=== PATIENT | male | born 1980 | race Caucasian/White ===

== ENCOUNTER 2017-06-21 15:25 | Emergency (ER) | payer OTHER ==
[2017-06-21] MEDS ORDERED: ACETAMINOPHEN TAB 500 MG TAB PO STA (16:02)
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
[2017-06-21] MEDS ORDERED: PROPARACAINE 0.5% OPHTH DROPS 15 ML BTL LEFT EYE STA (17:05)
[2017-06-21 17:35] VITALS: BP 128/84; PULSE 78; RESP 20; TEMP 98
== END 2017-06-21 17:35 | disposition home or self-care (01) ==
LOC: EC 15:25
DX: S02.80XA Fracture of other specified skull and facial bones, unspecified side, initial encounter for closed fracture (principal); S00.83XA Contusion of other part of head, initial encounter; F17.200 Nicotine dependence, unspecified, uncomplicated; Z88.5 Allergy status to narcotic agent; Y08.89XA Assault by other specified means, initial encounter
CPT/HCPCS: 70450; 70486; 72125; 99284